=== PATIENT | male | born 1965 | race Caucasian/White ===

== ENCOUNTER 2016-10-17 18:00 | Emergency (ER) | payer OTHER ==
[~2016-10-17] VITALS: Ht 167.6 cm; Wt 72.0 kg
[2016-10-17 18:44] VITALS: BP 134/84; PULSE 111; RESP 20; TEMP 98.5; O2SAT 99
--- NOTE | 2016-10-17 19:11 | PD ---
HPI Chief Complaint: Chest Pain Time Seen by Provider: 18:57 Travel History International Travel<30 days: No Contact w/Intl Traveler<30days: No Traveled to known affect area: No History of Present Illness HPI This is a 51-year-old male who has a history of COPD, DVT and alcoholism who presents to the emergency Department with onset of sternal nonradiating chest pain that started several hours prior to arrival described as a stabbing pain feels like someone is hitting him in the chest, unlike anything he several felt before. He initially thought it was indigestion but he called his and she told him to come right to the hospital. He has over the past several days been on a bus coming from [place] and didn't take his Eliquis for 3 days. He says his father had a heart attack in his early 60s. He does have a history of hyperlipidemia but no diabetes or hypertension. He does smoke cigarettes. He drinks alcohol daily and has had symptoms of alcohol withdrawal in the past. He is here visiting friends from [place] and admits to drinking alcohol today. PFSH Past Medical History Hx Anticoagulant Therapy: Yes Autoimmune Disease: No Blood Disorders: No Cancer: No Cardiovascular Problems: Yes Genitourinary: No Psychiatric: No Respiratory: Yes (COPD) Past Surgical History Pacemaker: No Social History Alcohol Use: Yes Tobacco Use: Yes Allergies-Medications (Allergen,Severity, Reaction): Coded Allergies: Penicillin (Verified Allergy, Severe, 10/17/16) Reported Meds & Prescriptions Reported Meds & Active Scripts Active Reported Proair Hfa 8.5 GM Inh (Albuterol Sulfate) 90 Mcg/Act Aer 2 Puff INH Q4-6H PRN 108 mcg/actuation Flonase Nasal Sublimity (Fluticasone Nasal Sublimity) 50 Mcg/Act Sublimity 50 Mcg EACH NARE BID Prilosec (Omeprazole) 20 Mg Cap 20 Mg PO DAILY Celexa (Citalopram Hydrobromide) 10 Mg Tab 10 Mg PO DAILY Seroquel (Quetiapine Fumarate) 100 Mg Tab 100 Mg PO BID Simvastatin 20 Mg Tab 20 Mg PO DAILY Eliquis (Apixaban) 5 Mg Tab 5 Mg PO BID Review of Systems Except as stated in HPI: all other systems reviewed are Neg Physical Exam Narrative GENERAL:Well appearing, no acute distress. Smells of alcohol. SKIN: Focused skin assessment warm and dry. HEAD: Atraumatic. Normocephalic. EYES: Pupils equal and round. No injection or drainage. ENT: Moist mucous membranes NECK: Trachea midline. CARDIOVASCULAR: Regular rate and rhythm. No murmur appreciated. RESPIRATORY: Clear to auscultation. Breath sounds equal bilaterally. GASTROINTESTINAL: Abdomen soft, mildly tender to palpation in the epigastrium with no rebound or guarding. MUSCULOSKELETAL: No obvious deformities. NEUROLOGICAL: Awake and alert. No obvious cranial nerve deficits. Moving all extremities. PSYCHIATRIC: Appropriate mood and affect; insight and judgment normal. Data Data Last Documented VS Vital Signs Date Time Temp Pulse Resp B/P Pulse Ox O2 Delivery O2 Flow Rate FiO2 10/17/16 19:39 118 20 111/71 96 Nasal Cannula 2 114/70 10/17/16 18:44 98.5 Orders Electrocardiogram (10/17/16 19:06) Complete Blood Count With Diff (10/17/16 19:06) Comprehensive Metabolic Panel (10/17/16 19:06) Magnesium (Mg) (10/17/16 19:06) Prothrombin Time / Inr (Pt) (10/17/16 19:06) Act Partial Throm Time (Ptt) (10/17/16 19:06) Troponin I (10/17/16 19:06) Lipase (10/17/16 19:06) Chest, Single Ap (10/17/16 19:06) Ecg Monitoring (10/17/16 19:06) Bilateral Bp Monitoring (10/17/16 19:06) Iv Access Insert/Monitor (10/17/16 19:06) Oximetry (10/17/16 19:06) Oxygen Administration (10/17/16 19:06) Sodium Chloride 0.9% Flush (Ns Flush) (10/17/16 19:15) D-Dimer (10/17/16 19:06) Sodium Chlor 0.9% 1000 Ml Inj (Ns 1000 M (10/17/16 19:15) Alcohol (Ethanol) (10/17/16 19:52) Chlordiazepoxide (Librium) (10/17/16 21:00) Troponin I (10/17/16 22:20) Labs Laboratory Tests Test 10/17/16 10/17/16 19:30 22:35 White Blood Count 6.2 TH/MM3 Red Blood Count 4.29 MIL/MM3 Hemoglobin 13.9 GM/DL Hematocrit 39.8 % Mean Corpuscular Volume 93.0 FL Mean Corpuscular Hemoglobin 32.5 PG Mean Corpuscular Hemoglobin 35.0 % Concent Red Cell Distribution Width 13.3 % Platelet Count 222 TH/MM3 Mean Platelet Volume 7.5 FL Neutrophils (%) (Auto) 51.7 % Lymphocytes (%) (Auto) 35.7 % Monocytes (%) (Auto) 6.7 % Eosinophils (%) (Auto) 4.8 % Basophils (%) (Auto) 1.1 % Neutrophils # (Auto) 3.2 TH/MM3 Lymphocytes # (Auto) 2.2 TH/MM3 Monocytes # (Auto) 0.4 TH/MM3 Eosinophils # (Auto) 0.3 TH/MM3 Basophils # (Auto) 0.1 TH/MM3 CBC Comment DIFF FINAL Differential Comment Prothrombin Time 10.9 SEC Prothromb Time International 1.0 RATIO Ratio Activated Partial 28.0 SEC Thromboplast Time D-Dimer Quantitative (PE/DVT) 0.43 MG/L FEU Sodium Level 142 MEQ/L Potassium Level 3.7 MEQ/L Chloride Level 107 MEQ/L Carbon Dioxide Level 24.5 MEQ/L Anion Gap 11 MEQ/L Blood Urea Nitrogen 6 MG/DL Creatinine 0.77 MG/DL Estimat Glomerular Filtration 107 ML/MIN Rate Random Glucose 106 MG/DL Calcium Level 8.0 MG/DL Magnesium Level 2.3 MG/DL Total Bilirubin 0.3 MG/DL Aspartate Amino Transf 33 U/L (AST/SGOT) Alanine Aminotransferase 46 U/L (ALT/SGPT) Alkaline Phosphatase 65 U/L Troponin I LESS THAN 0.02 0.02 NG/ML NG/ML Total Protein 7.0 GM/DL Albumin 3.6 GM/DL Lipase 414 U/L Ethyl Alcohol Level 296 MG/DL [facility] Medical Decision Making Medical Screen Exam Complete: Yes Emergency Medical Condition: Yes Interpretation(s) Afebrile, tachycardic, normotensive No leukocytosis Electrolytes are reassuring Troponin is normal 2 Lipase is normal Alcohol level is 296 Chest x-ray: No acute process Differential Diagnosis Acute coronary syndrome, pulmonary embolism, pancreatitis, gastritis, GERD Narrative Course This is a 51-year-old male who presents to the emergency department with chest pain that started earlier today. He has a long history of alcohol use. He is well-appearing on exam. He also has a history of DVT and hasn't taken it in 2- 3 days because it was in his luggage and he was on a bus. He was placed on a monitor and an IV was established. He was slightly tachycardic but had a normal blood pressure with no hypoxia. Labs were obtained which were reassuring. D-dimer was negative and patient has a moderate risk Wells score so I don't think CT imaging is warranted. Either way think the patient should restart his Eliquis. Even if he has a small pulmonary embolism he wouldn't meet criteria for thrombolysis so I doubt that imaging would change our management. Patient's lipase is slightly elevated but doesn't meet criteria for pancreatitis. Troponin was repeated and was negative 2. I think his chest discomfort is more likely related to alcoholic gastritis. I think the patient is safe for outpatient follow-up with a primary care physician. Diagnosis Primary Impression: Alcoholic gastritis Qualified Code: K29.20 - Acute alcoholic gastritis without hemorrhage Patient Instructions: General Instructions Additional Instructions: If you develop severe chest pain, shortness of breath, sweating, lightheadedness , dizziness or difficulty breathing return to the emergency department immediately. Followup with your primary care physician in 2-3 days if your symptoms are not resolved. Follow up with Louise Pham in regards to psychiatric or substance related issues at: [address] [place] [id number] Med/Other Pt SpecificInfo: No Change to Meds Disposition: 01 DISCHARGE HOME Condition: Stable Korin Aguirre MD Oct 17, 2016 19:11
[2016-10-17] MEDS ORDERED: SODIUM CHLOR 0.9% 1000 ML INJ 1,000 ML IV ONE (19:15)
[2016-10-17] MEDS ORDERED: SODIUM CHLORIDE 0.9% FLUSH 10 ML FLUSH IVF PRN (19:15)
[2016-10-17] MEDS ORDERED: APIX5TAB PO (19:24)
[2016-10-17] MEDS ORDERED: PRIL20CA9 PO (19:31)
[2016-10-17] MEDS ORDERED: ALBUAER3 INH (19:31)
[2016-10-17] MEDS ORDERED: FLUT1SPR5 EACH NARE (19:31)
[2016-10-17] MEDS ORDERED: CELE10TA PO (19:31)
[2016-10-17] MEDS ORDERED: SIMV20TA PO (19:31)
[2016-10-17] MEDS ORDERED: SERO100T PO (19:31)
[2016-10-17 19:35] VITALS: RESP 20
[2016-10-17 19:36] VITALS: BP 111/71; PULSE 105; RESP 20; O2SAT 95
[2016-10-17 19:39] VITALS: BP_SYST 111; BP_SYST 114; BP_DIAS 70; BP_DIAS 71; PULSE 118; RESP 20; O2SAT 96
--- NOTE | 2016-10-17 19:48 | RADRPT ---
EXAM DATE/TIME: 10/17/2016 19:08 [facility] COMPARISON: No previous studies available for comparison. INDICATIONS : Chest pain x 5 hrs. MEDICAL HISTORY : SURGICAL HISTORY : None. ENCOUNTER: Initial ACUITY: 1 day PAIN SCORE: 5/10 LOCATION: Bilateral chest FINDINGS: A single view of the chest demonstrates the lungs to be symmetrically aerated without evidence of mas s, infiltrate or effusion. The cardiomediastinal contours are unremarkable. Osseous structures are intact. CONCLUSION: No acute disease. Simone Olson MD on October 17, 2016 at 19:46 Board Certified Radiologist. This report was verified electronically.
[2016-10-17 20:04] LABS: AUTOMATED NEUTROPHIL # 3.2 TH/MM3 (1.8-7.7); BASOPHIL # 0.1 TH/MM3 (0-0.2); BASOPHIL % 1.1 % (0.0-2.0); EOSINOPHIL # 0.3 TH/MM3 (0-0.4); EOSINOPHIL % 4.8 % (0.0-4.0); HEMATOCRIT 39.8 % (39.0-51.0); HEMO FLAGS DIFF FINAL; LYMPH % 35.7 % (9.0-44.0); LYMPHOCYTE # 2.2 TH/MM3 (1.0-4.8); MEAN CORPUSCULAR HEMOGLOBIN 32.5 PG (27.0-34.0); MONO % 6.7 % (0.0-8.0); NEUT % 51.7 % (16.0-70.0); PLATELET COUNT 222 TH/MM3 (150-450); RED BLOOD COUNT 4.29 MIL/MM3 (4.50-5.90); RED CELL DISTRIBUTION WIDTH 13.3 % (11.6-17.2); WHITE BLOOD COUNT 6.2 TH/MM3 (4.0-11.0)
[2016-10-17 20:18] LABS: PROTHROMBIN TIME - PATIENT 10.9 SEC (9.8-11.6)
[2016-10-17 20:20] LABS: ANION GAP 11 MEQ/L (5-15); AST (GOT) 33 U/L (15-37); BICARBONATE 24.5 MEQ/L (21.0-32.0); BLOOD UREA NITROGEN 6 MG/DL (7-18); CHLORIDE 107 MEQ/L (98-107); GLOMERULAR FILTRATION RATE 107 ML/MIN (>89); MAGNESIUM 2.3 MG/DL (1.5-2.5); POTASSIUM 3.7 MEQ/L (3.5-5.1); SODIUM (NA) 142 MEQ/L (136-145)
[2016-10-17 20:25] LABS: ALKALINE PHOSPHATASE 65 U/L (45-117); ALT (GPT) 46 U/L (12-78); TOTAL BILIRUBIN ADULT 0.3 MG/DL (0.2-1.0)
[2016-10-17] MEDS ORDERED: chlordiazePOXIDE 25 MG CAP PO ONE (21:00)
[2016-10-18 06:38] VITALS: BP 133/75; PULSE 98; RESP 15; O2SAT 92
[2016-10-18 08:30] VITALS: BP 121/78; TEMP 97.8
--- NOTE | 2016-10-18 14:25 | EKG ---
Date Performed: 10/17/2016 Time Performed: 19:09:34 PTAGE: 51 years EKG: SINUS TACHYCARDIA NONSPECIFIC T-WAVE ABNORMALITY ABNORMAL RHYTHM ECG NO PREVIOUS TRACING DOCTOR: Eleanor Ignacio Interpretating Date/Time 10/18/2016 14:23:48
== END 2016-10-18 08:30 | disposition home or self-care (01) ==
LOC: NEPC 18:00 → NEPB 10-18 08:30
DX: K29.20 Alcoholic gastritis without bleeding (principal); R00.0 Tachycardia, unspecified; R94.31 Abnormal electrocardiogram [ECG] [EKG]; E78.5 Hyperlipidemia, unspecified; Z72.0 Tobacco use; Z79.01 Long term (current) use of anticoagulants; Z87.09 Personal history of other diseases of the respiratory system; Z86.718 Personal history of other venous thrombosis and embolism; Z86.79 Personal history of other diseases of the circulatory system
CPT/HCPCS: 71010; 80053; 80307; 83690; 83735; 84484; 85025; 85379; 85610; 85730; 93005; 96360; 99285; J7030